=== PATIENT | female | born 1980 | race Caucasian/White ===

== ENCOUNTER 2018-05-30 12:04 | Emergency (ER) | payer MEDICAID ==
[2018-05-30] MEDS: hydrOXYzine HCl 100 MG/2 ML SDV IM ONE (12:31)
--- NOTE | 2018-05-30 12:35 | EDM.PDOC ---
ED HPI GENERAL MEDICAL PROBLEM - General Chief Complaint: Allergic Reaction Stated Complaint: ALLERGIC REACTION TO MEDS Time Seen by Provider: 05/30/18 12:20 Source of Information: Reports: Patient History Limitations: Reports: No Limitations - History of Present Illness INITIAL COMMENTS - FREE TEXT/NARRATIVE: 38 yo female here with diffuse skin redness and itching. Took a first dose of prescribed amoxicillin today and this reaction began shortly afterwards. Has had amoxicillin many times in the past, always without issue. Denies any difficulty breathing or swallowing and is not light-headed. Onset: Today Onset Date: 05/30/18 Onset Time: 11:00 Duration: Minutes:, Constant Location: Reports: Generalized Quality: Reports: Other (no pain) Severity: Moderate Improves with: Reports: None Worsens with: Reports: Other (? amoxicillin) Context: Reports: Other (See HPI) Associated Symptoms: Reports: Rash (diffuse). Denies: Chest Pain, Fever/Chills , Nausea/Vomiting, Shortness of Breath, Syncope Treatments HYDRAULIC MINER: Reports: Other (see below) (none) - Related Data Allergies Allergy/AdvReac Type Severity Reaction Status Date / Time amoxicillin Allergy Rash Verified 05/30/18 12:22 venom-honey bee Allergy Swelling Verified 11/30/15 01:02 [bee venom (honey bee)] Home Meds: Home Meds EPINEPHrine [Epipen 2-Peter] 0.3 mg IM ASDIRECTED 03/12/13 [History] Clindamycin HCl [Cleocin HCl] 300 mg PO TID #21 capsule 05/30/18 [Rx] Past Medical History HEENT 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: Impaired Vision Other HEENT History: Dental caries Respiratory 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: Bronchitis, Recurrent Gastrointestinal 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: GERD Genitourinary 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: Chronic Renal Insuffiency, Renal Disease 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: Musculoskeletal 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: Arthritis, Back Pain, Chronic, Fibromyalgia Neurological 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: Concussion, Head Trauma, Migraines, Seizure Other Neuro History: seizure activity not recent Psychiatric 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: Anxiety - Infectious Disease History Infectious Disease 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: Chicken Pox - Past Surgical History HEENT Surgical 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: Oral Surgery GI Surgical 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: Appendectomy, Cholecystectomy Female Surgical 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: Section, Tubal Ligation Social & Family History - Family History Family Medical History: Noncontributory - Tobacco Use Smoking Status *Q: Heavy Tobacco Smoker Years of Tobacco use: 20 Packs/Tins Daily: 1 - Recreational Drug Use Recreational Drug Use: No ED ROS ALLERGIC REACTION - Review of Systems Review Of Systems: See Below Constitutional: Reports: No Symptoms HEENT: Reports: No Symptoms Respiratory: Reports: No Symptoms Cardiovascular: Reports: No Symptoms Endocrine: Reports: No Symptoms GI/Abdominal: Reports: No Symptoms : Reports: No Symptoms Musculoskeletal: Reports: No Symptoms Skin: Reports: Pruritis, Rash, Erythema Neurological: Reports: No Symptoms ED EXAM GENERAL NO PERIP PULSE - Physical Exam Exam: See Below Exam Limited By: No Limitations General Appearance: Alert, WD/WN, No Apparent Distress Eye Exam: Bilateral Eye: Normal Inspection Ears: Normal External Exam, Normal Canal, Hearing Grossly Normal Nose: Normal Inspection, No Blood Throat/Mouth: Normal Inspection, Normal Lips, Normal Oropharynx, Normal Voice, No Airway Compromise Head: Atraumatic, Normocephalic Neck: Normal Inspection Respiratory/Chest: No Respiratory Distress, Lungs Clear, Normal Breath Sounds, No Accessory Muscle Use Cardiovascular: Regular Rate, Rhythm, No Edema. No: Tachycardia GI/Abdominal: Normal Bowel Sounds, Soft, Non-Tender, No Distention Back Exam: Normal Inspection. No: CVA Tenderness (R), CVA Tenderness (L) Extremities: Normal Inspection, Normal Range of Motion, Non-Tender, No Pedal Edema Neurological: Alert, Oriented, CN II-XII Intact, Normal Cognition, No Motor/ Sensory Deficits Psychiatric: Normal Affect, Normal Mood Skin Exam: Warm, Dry, Intact, Erythema, Rash (fine, diffuse). No: Increased Warmth, Petechiae Course - Vital Signs Last Recorded V/S: Last Vital Signs Temp 36.6 C 05/30/18 12:20 Pulse 113 H 05/30/18 12:20 Resp 17 05/30/18 12:20 BP 110/78 05/30/18 12:20 Pulse Ox 94 L 05/30/18 12:20 - Orders/Labs/Meds Meds: Medications Discontinued Medications Generic Name Dose Route Start Last Admin Trade Name Shreyas PRN Reason Stop Dose Admin Hydroxyzine HCl 75 mg 05/30/18 12:26 05/30/18 12:31 Vistaril IM 05/30/18 12:27 75 mg ONETIME ONE Administration Departure - Departure Time of Disposition: 13:19 Disposition: Home, Self-Care 01 Condition: Good Clinical Impression: Allergic reaction to drug Qualifiers: Encounter type: initial encounter Qualified Code(s): T78.40XA - Allergy, unspecified, initial encounter - Discharge Information *PRESCRIPTION DRUG MONITORING PROGRAM REVIEWED*: No *COPY OF PRESCRIPTION DRUG MONITORING REPORT IN PATIENT BRODY: No Prescriptions: Clindamycin HCl [Cleocin HCl] 300 mg PO TID #21 capsule Instructions: Allergies, Adult, [id number] Referrals: PCP,None [Primary Care Provider] - Forms: ED Department Discharge Additional Instructions: Stop amoxicillin and don't take any medicine from the 'cillin family in the future. Take clindamycin as directed. F/U with your dentist as previously scheduled. Starting after 5 pm today if you have any residual itching take diphenhydramine 50 mg every 4-6 hrs as needed. Return if a lot worse.
[2018-05-30 13:31] VITALS: BP 112/72
== END 2018-05-30 13:37 | disposition home or self-care (01) ==
LOC: JP.ED 12:04
DX: L27.0 Generalized skin eruption due to drugs and medicaments taken internally (principal); T36.0X5A Adverse effect of penicillins, initial encounter; Z91.030 Bee allergy status; F17.210 Nicotine dependence, cigarettes, uncomplicated; Z90.49 Acquired absence of other specified parts of digestive tract; Z98.51 Tubal ligation status; N18.9 Chronic kidney disease, unspecified
CPT/HCPCS: 96372; 99283; J3410

== ENCOUNTER 2020-07-24 10:32 | Emergency (ER) | payer MEDICAID ==
[2020-07-24 11:37] VITALS: BP 140/78; PULSE 70
--- NOTE | 2020-07-24 11:50 | EDM.PDOC ---
ED HPI GENERAL MEDICAL PROBLEM - General Chief Complaint: Lower Extremity Injury/Pain Stated Complaint: R LOWER LEG INJURY Time Seen by Provider: 07/24/20 11:45 Source of Information: Reports: Patient History Limitations: Reports: No Limitations - History of Present Illness INITIAL COMMENTS - FREE TEXT/NARRATIVE: pt slipped on the ice and injured her rt upper leg laterally. She is having trouble walking on the leg. She was concerned that she may have fractured the upper bone. Onset: Other (pt fell last nite. ) Duration: Hour(s): Location: Reports: Lower Extremity, Right Associated Symptoms: Reports: No Other Symptoms - Related Data Allergies Allergy/AdvReac Type Severity Reaction Status Date / Time amoxicillin Allergy Rash Verified 07/24/20 11:39 venom-honey bee Allergy Swelling Verified 07/24/20 11:39 [bee venom (honey bee)] Home Meds: Home Meds EPINEPHrine [Epipen 2-Peter] 0.3 mg IM ASDIRECTED 03/12/13 [History] Past Medical History HEENT 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: Impaired Vision Other HEENT History: Dental caries Respiratory 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: Bronchitis, Recurrent Gastrointestinal 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: GERD Genitourinary 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: Chronic Renal Insuffiency, Renal Disease 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 RELIEF 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: Musculoskeletal 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: Arthritis, Back Pain, Chronic, Fibromyalgia Neurological 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: Concussion, Head Trauma, Migraines, Seizure Other Neuro History: seizure activity not recent Psychiatric 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: Anxiety - Infectious Disease History Infectious Disease 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: Chicken Pox - Past Surgical History Head Surgeries/Procedures: Reports: None HEENT Surgical 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: Oral Surgery Other HEENT Surgeries/Procedures: Dental extractions Respiratory Surgical 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: None GI Surgical 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: Appendectomy, Cholecystectomy Female Surgical 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: Section, Tubal Ligation Neurological Surgical 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: None Musculoskeletal Surgical 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: None Dermatological Surgical 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: None Social & Family History - Family History Family Medical History: No Pertinent Family History - Tobacco Use Tobacco Use Status *Q: Current Every Day Tobacco User Years of Tobacco use: 15 Packs/Tins Daily: 0.5 Used Tobacco, but Quit: No Second Hand Smoke Exposure: No - Caffeine Use Caffeine Use: Reports: Coffee, Soda - Recreational Drug Use Recreational Drug Use: No Review of Systems - Review of Systems Review Of Systems: See Below Constitutional: Reports: No Symptoms Eyes: Reports: No Symptoms Ears: Reports: No Symptoms Nose: Reports: No Symptoms Mouth/Throat: Reports: No Symptoms Respiratory: Reports: No Symptoms Cardiovascular: Reports: No Symptoms GI/Abdominal: Reports: No Symptoms Genitourinary: Reports: No Symptoms Musculoskeletal: Reports: Other (pain in the rt upper leg laterally. ) Skin: Reports: No Symptoms ED EXAM, GENERAL - Physical Exam Exam: See Below Free Text/Narrative:: pt arrived with pain in her rt upper portion of the lower leg just below the knee laterally. Exam Limited By: No Limitations General Appearance: Alert, Anxious, Mild Distress Ears: Normal TMs Nose: Normal Inspection Throat/Mouth: Normal Inspection Head: Atraumatic Neck: Normal Inspection Respiratory/Chest: No Respiratory Distress Cardiovascular: Regular Rate, Rhythm Extremities: Other (pt has swelling and tenderness on the lateral aspect of the upper portion of the lower leg. ) Neurological: Alert, Oriented, Normal Cognition Psychiatric: Anxious Course - Vital Signs Last Recorded V/S: Last Vital Signs Temp 36.6 C 07/24/20 11:39 Pulse 70 07/24/20 11:39 Resp 17 07/24/20 11:39 BP 140/78 07/24/20 11:39 Pulse Ox 97 07/24/20 11:39 - Re-Assessments/Exams Free Text/Narrative Re-Assessment/Exam: 07/24/20 11:49 xrays reveal no fractures. Departure - Departure Time of Disposition: 12:05 Disposition: Home, Self-Care 01 Condition: Fair Clinical Impression: Injury of muscle - Discharge Information Referrals: PCP,None [Primary Care Provider] - Forms: ED Department Discharge Care Plan Goals: knee imbolizer, crutches, tyylenol and motrin for pain appt with Dr Echeverria in 1 week. Sepsis Event Note (ED) - Evaluation Sepsis Screening Result: No Definite Risk - Focused Exam Vital Signs: Vital Signs Temp Pulse Resp BP Pulse Ox 07/24/20 11:39 36.6 C 70 17 140/78 97 07/24/20 11:36 36.6 C 70 17 140/78 97
--- NOTE | 2020-07-24 12:01 | CR ---
Tibia Fibula Rt CLINICAL HISTORY: Pain below right knee, fall FINDINGS: Two views show no evidence of fracture or bone destruction. No soft tissue abnormality is seen. Impression: Negative
== END 2020-07-24 12:29 | disposition home or self-care (01) ==
LOC: JP.ED 10:32
DX: S86.901A Unspecified injury of unspecified muscle(s) and tendon(s) at lower leg level, right leg, initial encounter (principal); N18.9 Chronic kidney disease, unspecified; Z72.0 Tobacco use; Z88.0 Allergy status to penicillin; Z91.030 Bee allergy status; W00.0XXA Fall on same level due to ice and snow, initial encounter
CPT/HCPCS: 73590-26-RT; 73590-RT; 99283-25

== ENCOUNTER 2020-10-29 21:34 | Emergency (ER) | payer MEDICAID ==
[2020-10-29 22:31] VITALS: BP 134/75; PULSE 81
[2020-10-29] MEDS ORDERED: Lidocaine 4% Top Soln LTA 4 ML Syringe Kit TOP ONE (23:30)
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
[2020-10-29] MEDS ORDERED: Lidocaine 4% Top Soln 50 ML Bottle ONE (23:40)
== END 2020-10-30 00:09 | disposition home or self-care (01) ==
LOC: JP.ED 21:34
DX: L55.1 Sunburn of second degree (principal); R60.0 Localized edema; Z88.0 Allergy status to penicillin; Z91.030 Bee allergy status; Z72.0 Tobacco use
CPT/HCPCS: 99283; A9270

== ENCOUNTER 2020-12-04 11:00 | Emergency (ER) | payer MEDICAID ==
[2020-12-04] MEDS ORDERED: Ondansetron 4 MG/2 ML SDV IVPUSH ONE (11:53)
[2020-12-04] MEDS ORDERED: Sodium Chloride 0.9% 1,000 ML IV SCH (12:00)
--- NOTE | 2020-12-04 12:25 | EDM.PDOC ---
ED HPI GENERAL MEDICAL PROBLEM - General Chief Complaint: Allergic Reaction Stated Complaint: PRESCRIBED SAVELLA BY ERON SHENG EXPER SIDE EFFECT Time Seen by Provider: 12/04/20 11:40 Source of Information: Reports: Patient History Limitations: Reports: No Limitations - History of Present Illness INITIAL COMMENTS - FREE TEXT/NARRATIVE: This is a 40 year old female presenting with dizziness, shakiness, nausea, and sweating. She reports that around 9 am this morning she took her first dose of Savella for her fibromyalgia. Shortly after, she started experiencing dizziness, feeling shaking, nausea and dry heaving, and sweating. She was otherwise in her usual state of health prior to taking this medication for the first time. She denies any chest pain or SOB. She denies abdominal pain, diarrhea, or urinary symptoms. - Related Data Allergies Allergy/AdvReac Type Severity Reaction Status Date / Time amoxicillin Allergy Rash Verified 12/04/20 11:36 venom-honey bee Allergy Swelling Verified 12/04/20 11:36 [bee venom (honey bee)] Home Meds: Home Meds EPINEPHrine [Epipen 2-Peter] 0.3 mg IM ASDIRECTED 03/12/13 [History] Milnacipran HCl [Savella] 1 tab PO DAILY 12/04/20 [History] Past Medical History HEENT 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: Impaired Vision Other HEENT History: Dental caries Respiratory 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: Bronchitis, Recurrent Gastrointestinal 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: GERD Genitourinary 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: Chronic Renal Insuffiency, Renal Disease [employer] 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: Musculoskeletal 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: Arthritis, Back Pain, Chronic, Fracture, Fibromyalgia Other Musculoskeletal History: right tib FX 07/24/20 Neurological 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: Concussion, Head Trauma, Migraines, Seizure Other Neuro History: seizure activity not recent Psychiatric 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: Anxiety - Infectious Disease History Infectious Disease 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: Chicken Pox - Past Surgical History Head Surgeries/Procedures: Reports: None HEENT Surgical 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: Oral Surgery Other HEENT Surgeries/Procedures: Dental extractions Respiratory Surgical 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: None GI Surgical 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: Appendectomy, Cholecystectomy, EGD Female Surgical 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: Section, Tubal Ligation Neurological Surgical 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: None Musculoskeletal Surgical 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: None Dermatological Surgical 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: None Social & Family History - Family History Family Medical History: No Pertinent Family History - Tobacco Use Tobacco Use Status *Q: Current Every Day Tobacco User Years of Tobacco use: 25 Packs/Tins Daily: 1 - Caffeine Use Caffeine Use: Reports: Coffee, Soda ED ROS ALLERGIC REACTION - Review of Systems Review Of Systems: Comprehensive ROS is negative, except as noted in HPI. ED EXAM GENERAL NO PERIP PULSE - Physical Exam Exam: See Below Exam Limited By: No Limitations General Appearance: Alert, No Apparent Distress Throat/Mouth: Other (MMM) Head: Atraumatic, Normocephalic Neck: Full Range of Motion Respiratory/Chest: No Respiratory Distress, Lungs Clear, Normal Breath Sounds Cardiovascular: Regular Rate, Rhythm GI/Abdominal: Soft, Non-Tender Extremities: Normal Range of Motion, No Pedal Edema Neurological: Alert, CN II-XII Intact, No Motor/Sensory Deficits Psychiatric: Normal Affect, Normal Mood Skin Exam: Warm, Dry #1 Interpretation EKG Date: 12/04/20 Time: 12:27 Rhythm: NSR Rate (Beats/Min): 76 P-Wave: Present QRS: Normal ST-T: Normal QT: Normal Comparison: NA - No Prior EKG EKG Interpretation Comments: normal sinus rhythm without evidence of arrhythmia or ischemia Course - Vital Signs Last Recorded V/S: Last Vital Signs Temp 97.8 F 12/04/20 11:43 Pulse 72 12/04/20 12:40 Resp 15 12/04/20 11:43 BP 114/74 12/04/20 12:40 Pulse Ox 95 12/04/20 12:40 - Orders/Labs/Meds Orders: Active Orders 24 hr Category Date Time Status EKG 12 Lead [EK] Stat Ther 12/04/20 11:51 Ordered Labs: Laboratory Tests 12/04/20 12/04/20 Range/Units 12:01 12:01 WBC 11.0 (4.5-11.0) K/uL RBC 4.89 (3.30-5.50) M/uL Hgb 14.9 (12.0-15.0) g/dL Hct 43.4 (36.0-48.0) % MCV 89 (80-98) fL MCH 31 (27-31) pg MCHC 34 (32-36) % Plt Count 351 (150-400) K/uL Neut % (Auto) 81.7 H (36-66) % Lymph % (Auto) 13.0 L (24-44) % [place] % (Auto) 4.5 (2-6) % Eos % (Auto) 0.6 L (2-4) % Baso % (Auto) 0.2 (0-1) % Sodium 139 L (140-148) mmol/L Potassium 4.2 (3.6-5.2) mmol/L Chloride 103 (100-108) mmol/L Carbon Dioxide 26 (21-32) mmol/L Anion Gap 14.2 H (5.0-14.0) mmol/L BUN 6 L (7-18) mg/dL Creatinine 0.9 (0.6-1.0) mg/dL Est Cr Clr Drug Dosing 81.61 mL/min Estimated GFR (MDRD) > 60 (>60) Glucose 98 (74-106) mg/dL Calcium 8.7 (8.5-10.1) mg/dL Meds: Medications Discontinued Medications Generic Name Dose Route Start Last Admin Trade Name Freq PRN Reason Stop Dose Admin Sodium Chloride 1,000 mls @ 1,000 mls/hr 12/04/20 12:00 12/04/20 12:53 Normal Saline IV 1,000 mls/hr ASDIRECTED JESUS Administration Ondansetron HCl 4 mg 12/04/20 11:53 12/04/20 12:52 Ondansetron 4 Mg/2 Ml Sdv IVPUSH 12/04/20 11:54 4 mg ONETIME ONE Administration Departure - Departure Time of Disposition: 13:43 Disposition: Home, Self-Care 01 Clinical Impression: Medication adverse effect Qualifiers: Encounter type: initial encounter Qualified Code(s): T50.905A - Adverse effect of unspecified drugs, medicaments and biological substances, initial encounter - Discharge Information Instructions: Basics of Medicine Management Referrals: IDRIS QUIROZ [Other] Forms: ED Department Discharge Additional Instructions: Discontinue the Savella. Please follow up with your doctor next week to discuss alternative medications to consider. You may continue to experience some adverse symptoms to the medication over the next 1-2 days while the medication is metabolized by your body. Return to the Emergency Department for any new or worsening symptoms, including persistent vomiting, passing out, difficulty breathing, or other concerning symptoms. Sepsis Event Note (ED) - Evaluation Sepsis Screening Result: No Definite Risk - Focused Exam Vital Signs: Vital Signs Temp Pulse Resp BP Pulse Ox 12/04/20 12:40 72 114/74 95 12/04/20 12:12 64 95/62 96 12/04/20 11:43 97.8 F 91 15 124/75 98 12/04/20 11:40 94 122/78 96 12/04/20 11:14 97.8 F 91 15 124/75 98 - Problem List Review Problem List Initiated/Reviewed/Updated: Yes - My Orders Last 24 Hours: My Active Orders 12/04/20 11:51 EKG 12 Lead [EK] Stat - Assessment/Plan Last 24 Hours: My Active Orders 12/04/20 11:51 EKG 12 Lead [EK] Stat Assessment:: This is a 40 year old female presenting with dizziness/lightheadedness, feeling shaky, and nauseated after starting Savella for her fibromyalgia. She is afebrile and well appearing on arrival. Her evaluation today has been unrevealing. she is feeling somewhat improved after zofran and IVF. I suspect that her symptoms are likely side effects of her new medication. I recommended she discontinue this (she has only had one dose so no need to taper) and follow up with her primary care provider to discuss alternative treatment options for her fibromyalgia. Instructed patient to return to the ED for any new or worsening symptoms, including persistent vomiting, chest pain, SOB, or other concerning symptoms.
[2020-12-04 13:06] VITALS: BP 114/74; PULSE 72
== END 2020-12-04 14:10 | disposition home or self-care (01) ==
LOC: JP.ED 11:00
DX: R42 Dizziness and giddiness (principal); T50.995A Adverse effect of other drugs, medicaments and biological substances, initial encounter; N18.9 Chronic kidney disease, unspecified; Z88.0 Allergy status to penicillin; Z72.0 Tobacco use; Z91.030 Bee allergy status
CPT/HCPCS: 36415; 80048; 85025; 93005; 96374; 99283; J2405; J7030

== ENCOUNTER 2022-12-11 21:57 | Emergency (ER) | payer MEDICAID ==
[2022-12-11 23:04] VITALS: BP 118/81; PULSE 85
== END 2022-12-12 00:28 | disposition home or self-care (01) ==
LOC: JP.ED 21:57
DX: L29.9 Pruritus, unspecified (principal); K21.9 Gastro-esophageal reflux disease without esophagitis; N18.9 Chronic kidney disease, unspecified; Z88.0 Allergy status to penicillin; Z91.030 Bee allergy status; Z72.0 Tobacco use
CPT/HCPCS: 99282